=== PATIENT | male | born 1975 | race Caucasian/White ===

== ENCOUNTER → 2021-06-01 | Outpatient (CLI) | payer SELFPAY | LOC: LAB SHORT 12:33 | DX: J01.90 Acute sinusitis, unspecified (principal) | CPT/HCPCS: 87070; 87077; 87186 ==

== ENCOUNTER 2023-12-04 20:55 | Emergency (ER) | payer OTHER ==
[~2023-12-04] VITALS: Ht 175.3 cm; Wt 79.4 kg
[2023-12-04 21:24] VITALS: BP 128/80
[2023-12-04] MEDS ORDERED: DiphenhydrAMINE HCl 50 MG/ML 1ML Vial IV ONE (21:30)
[2023-12-04] MEDS ORDERED: Famotidine 10 MG/ML 2ML Vial IV ONE (21:35)
[2023-12-04] MEDS ORDERED: MethylPREDNISolone Sod Succ 125 MG Vial IV ONE (21:40)
== END 2023-12-04 23:09 | disposition home or self-care (01) ==
LOC: ER 20:55
DX: L50.9 Urticaria, unspecified (principal)
CPT/HCPCS: 96374; 96375; 99283-25; J1200; J2930